=== PATIENT | male | born 1965 | race Caucasian/White ===

== ENCOUNTER 2016-09-08 14:53 | Emergency (ER) | payer SELFPAY ==
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
[2016-09-09] MEDS ORDERED: BOOSTRIX IM ONE (02:49)
[2016-09-09] MEDS ORDERED: THERMAZENE 50 GRAM TP ONE (02:49)
[2016-09-09] MEDS ORDERED: NACL 0.9% IR ONE (02:50)
[2016-09-09] MEDS ORDERED: CLEOCIN PO ONE (02:50)
[2016-09-09 07:34] VITALS: BP 114/70
== END 2016-09-09 04:25 | disposition home or self-care (01) ==
LOC: ED 14:53
DX: T25.122A Burn of first degree of left foot, initial encounter (principal); T25.121A Burn of first degree of right foot, initial encounter; T31.0 Burns involving less than 10% of body surface; X10.1XXA Contact with hot food, initial encounter; Y93.9 Activity, unspecified; Y92.9 Unspecified place or not applicable; Y99.9 Unspecified external cause status
CPT/HCPCS: 90471; 90715